=== PATIENT | male | born 1975 | race Caucasian/White ===

== ENCOUNTER 2018-10-20 11:44 | Day surgery (SDC) | payer OTHER, SELFPAY ==
[2018-10-12 07:18] VITALS: BMI 22.8
[2018-10-20] VITALS (7 sets, daily range): BP systolic 90–118; BP diastolic 43–71; PULSE 47–61; RESP 13–16; TEMP 36.4–37; O2SAT 94–99; BMI 22.2
--- NOTE | 2018-10-20 | PATH_ITS ---
[facility] Accession Number: [id number] . 01 Material submitted: . RECTAL BIOPSY . 02 Diagnosis: Biopsies, Rectum: Fragments of essentially normal appearing rectal mucosa with prominent lymphoid aggregates and nonspecific mucosal hyperemia. Negative for significanta architectural distortion. Negative for significant inflammation, dysplasia and malignancy. MRV/10/21/2018 . 02 Electronically signed: . Edwin Dumas MD, Pathologist NPI- [id number] . 01 Gross description: . RECTAL BIOPSY: Received in formalin are multiple fragment(s) of rae, soft tissue measuring 1.0 x 0.4 x 0.3 cm in aggregate submitted entirely in 1 cassette(s) /CKI /CKI . 02 Pathologist provided ICD-10: Z12.11 . 02 CPT . 275084 Performed at: 01 [facility] [address] [id number] MD Hadley Mcadams MD Phone: [phone] Performed at: 02 [facility] [address] [place], [place] [id number] MD Jessica Fofana MD Phone: [phone]
[2018-10-20] MEDS: LACTATED RINGERS 1,000 ML 42 ML IV (12:20)
--- NOTE | 2018-10-20 14:11 | PM.HP.1 ---
History of Present Illness Date Patient Seen: 10/20/18 Time Patient Seen: 14:11 Chief complaint: [id number] Anoscop Narrative: 43-year-old male who presented with anal drainage of unclear etiology. He was having some perianal irritation and discomfort as well. He has a history of proctitis of unclear etiology. Recent colonoscopy did not reveal definitive pathology. He denies any fecal incontinence however. No significant pain with defecation. He returns today for planned examination under anesthesia, potential biopsy of the rectum, and possible fistulotomy. Since his visit in August 2018 his symptoms otherwise remain unchanged. Patient History Family & Social History Social History: household members spouse,children Tobacco & Substance use: Smoking Status Never smoker alcohol intake current Substance Use Type does not use Meds Home Medications Medication Instructions Recorded Confirmed Type omeprazole 20 mg capsule,delayed 20 mg PO DAILY 09/09/18 10/20/18 History release Allergies Allergy/AdvReac Type Severity Reaction Status Date / Time Penicillins Allergy bronchospasms, Verified 09/09/18 16:01 hives Review of Systems Review of Systems All systems reviewed & are unremarkable except as noted in HPI and below Exam Vital Signs (past 8 hours): - 10/20/18 12:04 Temperature 97.8 F Pulse Rate 55 L Respiratory Rate 16 Blood Pressure 117/71 Pulse Oximetry 97 Oxygen Delivery Method Room Air Narrative Exam Narrative: Well-nourished well-developed male in no acute distress. Alert oriented x3 Sclera nonicteric Neck supple Chest clear to auscultation. Regular rate rhythm Abdomen soft, nondistended, nontender Extremities show no clubbing or cyanosis Rectal examination is deferred today due to recent examination in the office which is documented as per my prior note in August 2018. Objective Labs Labs: No new laboratory or radiographic studies review since his visit in August 2018 Assessment & Plan Assessment & Plan narrative: 43-year-old male with perianal discomfort and drainage of unclear etiology. History of proctitis as well. I reiterated recommendation for examination under anesthesia and potential biopsy as well as possible fistulotomy. Technical details again reviewed. Anticipated healing and recovery times again reviewed. Risks, benefits, and alternatives again reviewed. These are as documented in my note of August 2018. All questions answered to his satisfaction, and he voiced understanding. Consent remains on the chart. Consent updated. Proceed with surgery today as planned.
--- NOTE | 2018-10-20 14:14 | P.HP_ITS ---
History of Present Illness Date Patient Seen: 10/20/18 Time Patient Seen: 14:11 Chief complaint: [id number] Anoscop Narrative: 43-year-old male who presented with anal drainage of unclear etiology. He was having some perianal irritation and discomfort as well. He has a history of proctitis of unclear etiology. Recent colonoscopy did not reveal definitive pathology. He denies any fecal incontinence however. No significant pain with defecation. He returns today for planned examination under anesthesia, potential biopsy of the rectum, and possible fistulotomy. Since his visit in August 2018 his symptoms otherwise remain unchanged. Patient History Family & Social History Social History: household members spouse,children Tobacco & Substance use: Smoking Status Never smoker alcohol intake current Substance Use Type does not use Meds Home Medications Medication Instructions Recorded Confirmed Type omeprazole 20 mg capsule,delayed 20 mg PO DAILY 09/09/18 10/20/18 History release Allergies Allergy/AdvReac Type Severity Reaction Status Date / Time Penicillins Allergy bronchospasms, Verified 09/09/18 16:01 hives Review of Systems Review of Systems All systems reviewed & are unremarkable except as noted in HPI and below Exam Vital Signs (past 8 hours): - 10/20/18 12:04 Temperature 97.8 F Pulse Rate 55 L Respiratory Rate 16 Blood Pressure 117/71 Pulse Oximetry 97 Oxygen Delivery Method Room Air Narrative Exam Narrative: Well-nourished well-developed male in no acute distress. Alert oriented x3 Sclera nonicteric Neck supple Chest clear to auscultation. Regular rate rhythm Abdomen soft, nondistended, nontender Extremities show no clubbing or cyanosis Rectal examination is deferred today due to recent examination in the office which is documented as per my prior note in August 2018. Objective Labs Labs: No new laboratory or radiographic studies review since his visit in August 2018 Assessment & Plan Assessment & Plan narrative: 43-year-old male with perianal discomfort and drainage of unclear etiology. History of proctitis as well. I reiterated recommendation for examination under anesthesia and potential biopsy as well as possible fistulotomy. Technical details again reviewed. Anticipated healing and recovery times again reviewed. Risks, benefits, and alternatives again re viewed. These are as documented in my note of August 2018. All questions answered to his satisfaction, and he voiced understanding. Consent remains on the chart. Consent updated. Proceed with surgery today as planned.
--- NOTE | 2018-10-20 14:14 | PM.PREOP ---
Pre-operative Note Interval Note History & Physical reviewed/Exam performed by Physician: Yes Changes to H&P: No H&P completed within 30 days and has changed as indicated here:: Patient seen and examined again today in the preoperative area. History and physical examination from August 2018 has been updated accordingly. Obviously no changes per today's documentation. Proceed with examination under anesthesia and biopsy today.
[2018-10-20] MEDS: CLINDAMYCIN 900 MG/50 ML PIGGYBACK 50 MG IV (14:16)
--- NOTE | 2018-10-20 14:43 | SUR.OPER ---
Prone on padded OR bed, head in foam head support, gel chest rolls, gel pad under knees, pillow under lower legs, toes free of pressure, arms secured on padded arm boards at <90 degrees abduction. Safety belt at thigh. tape over lower legs over blanket.
[2018-10-20] MEDS: DIBUCAINE 1% OINT 28 GM 1 APPLIC TOP (14:52)
--- NOTE | 2018-10-20 15:25 | PM.OP.1 ---
Operative Date/Time/Diagnoses Date of procedure: 10/20/18 Time of procedure: 15:25 Pre-op diagnosis: Perianal discomfort and drainage was history of proctitis Post-op diagnosis: other (Normal anorectal canal without evidence of significant hemorrhoid disease or fistulas) Procedure & Clinicians Procedure: 1. Examination under anesthesia 2. Anoscopy 3. Rectal biopsies Same procedure as scheduled: Yes Indications: 43-year-old male who presented with recent history of perianal discomfort and intermittent mucoid drainage of unclear etiology. He has a history of proctitis. He recently underwent colonoscopy without significant pathology noted. He is therefore recommended to undergo examination under anesthesia with anoscopy and potential biopsy. Surgeon: Renny Tello Click Yes if Unassisted: Yes Anesthesia Type: General Operative Notes Findings: 1. Grossly normal distal rectal mucosa 2. Normal anal crypts without evidence of abscess or fistulas 3. No evidence of anal fissures 4. No abnormal internal or external hemorrhoids 5. No evidence of lesions in the anoderm 6. Normal prostate on examination without nodules 7. No evidence of distal rectal masses Closure Type: not applicable Specimen(s): other (Rectal biopsies) Prosthetic devices, grafts, tissues, transplants, or devices: None Estimated Blood Loss (mL): 15 Blood products transfused: none Procedure in detail: After obtaining informed consent the patient was brought to the operating room and left supine on the [facility]. After satisfactory induction of anesthesia he was placed in prone eric-knife position. All pressure points were padded appropriately. SCOAP time out was performed per standard protocol. Buttocks were taped apart and the perianal region was prepped and draped in usual sterile fashion. Digital rectal examination was performed. Anoscopy was performed circumferentially in a meticulous fashion using the [place] bivalve anoscope. All anal crypts were meticulously examined using a blunt hooked probe. All findings are noted as above. Several generous biopsies were taken of the distal rectal mucosa with the biting forceps and sent for permanent section. Hemostasis was achieved with [id number] 2 0 chromic sutures at the biopsy sites. Area was irrigated noted to be hemostatic. Again, there was no evidence of any significant pathology. Gel-Foam packing impregnated with dibucaine ointment was placed in the anorectal canal. Dressing and mesh undergarment were applied. Skin tape was removed and the [facility] Anesthesia was reversed and patient extubated in the operating room. He was taken recovery stable condition. Complications: none Condition: stable Disposition: PACU Plan for aftercare: 1. Discharge home 2. Follow up in surgery Clinic in 1 week 3. Await biopsy results
--- NOTE | 2018-10-20 15:31 | P.OP_ITS ---
Operative Date/Time/Diagnoses Date of procedure: 10/20/18 Time of procedure: 15:25 Pre-op diagnosis: Perianal discomfort and drainage was history of proctitis Post-op diagnosis: other (Normal anorectal canal without evidence of significant hemorrhoid disease or fistulas) Procedure & Clinicians Procedure: 1. Examination under anesthesia 2. Anoscopy 3. Rectal biopsies Same procedure as scheduled: Yes Indications: 43-year-old male who presented with recent history of perianal discomfort and intermittent mucoid drainage of unclear etiology. He has a history of proctitis. He recently underwent colonoscopy without significant pathology noted. He is therefore recommended to undergo examination under anesthesia with anoscopy and potential biopsy. Surgeon: Renny Tello Click Yes if Unassisted: Yes Anesthesia Type: General Operative Notes Findings: 1. Grossly normal distal rectal mucosa 2. Normal anal crypts without evidence of abscess or fistulas 3. No evidence of anal fissures 4. No abnormal internal or external hemorrhoids 5. No evidence of lesions in the anoderm 6. Normal prostate on examination without nodules 7. No evidence of distal rectal masses Closure Type: not applicable Specimen(s): other (Rectal biopsies) Prosthetic devices, grafts, tissues, transplants, or devices: None Estimated Blood Loss (mL): 15 Blood products transfused: none Procedure in detail: After obtaining informed consent the patient was brought to the operating room and left supine on the [facility]. After satisfactory induction of anesthesia he was placed in prone eric-knife position. All pressure points were padded appropriately. SCOAP time out was performed per standard protocol. Buttocks were taped apart and the perianal region was prepped and draped in usual sterile fashion. Digital rectal examination was performed. Anoscopy was performed circumferentially in a meticulous fashion using the [place] bivalve anoscope. All anal crypts were meticulously examined using a blunt hooked probe. All findings are noted as above. Several generous biopsies were taken of the distal rectal mucosa with the biting forceps and sent for permanent section. Hemostasis was achieved with [id number] 2 0 chromic sutures at the biopsy sites. Area was irrigated noted to be hemostatic. Again, there was no evidence of any significant pathology. Gel-Foam packing impregnated with dibucaine ointment was placed in the anorectal canal. Dressing and mesh undergarment were applied. Skin tape was removed and the [facility] Anesthesia was reversed and patient extubated in the operating room. He was taken recovery stable condition. Complications: none Condition: stable Disposition: PACU Plan for aftercare: 1. Discharge home 2. Follow up in surgery Clinic in 1 week 3. Await biopsy results
[2018-10-20] MEDS: fentaNYL 100 MCG/2 ML INJ 50 MCG IV (15:50)
== END 2018-10-20 16:13 | disposition home or self-care (01) ==
PROVIDERS: PCP Preventive Medicine Public Health & General Preventive Medicine; Visit Provider Surgery
PROC: (CPT 45990; principal; 2018-10-20 13:00)
DX: L29.0 Pruritus ani (principal); Z87.898 Personal history of other specified conditions
CPT/HCPCS: 46606; 88305; J1100; J1885; J2405; J2704; J3010